=== PATIENT | male | born 1970 | race Caucasian/White ===

== ENCOUNTER → 2021-12-31 | Outpatient (CLI) | payer BC ==
[2021-12-31 22:49] LABS: HCT 47.6 % (39.6-50.0); HGB 15.9 g/dL (13.0-17.0); MCH 30.8 pg (27.0-32.0); MCHC 33.4 g/dL (32.0-37.0); MCV 92.1 fL (80.0-97.0); Mean Platelet Volume 11.9 fL (9.5-12.2); NRBC Per 100 WBC 0 /100 WBCS (0.0-0.0); Platelet Count 235 X 10*3/uL (140-440); RBC 5.17 X 10*6/uL (4.40-5.60); RDW 12.3 % (11.5-14.5); WBC 8.07 X 10*3/uL (4.50-10.00)
[2021-12-31 23:19] LABS: Appearance,Urine Cloudy (Clear); Bilirubin,Urine Negative (Negative); Blood,Urine Large (Negative); Color,Urine Dark Yellow (Yellow); Ketones,Urine Trace mg/dL (Negative); Nitrite,Urine Negative (Negative); Specific Gravity,Urine 1.022 (1.001-1.030)
[2022-01-01 00:01] LABS: Bacteria,Urine None Seen /HPF (None Seen)
[2022-01-01 02:10] LABS: African American GFR (CKD) 89.6 (60.0-200.0); Anion Gap 11.2 mmol/L (10.00-18.00); BUN/Creat Ratio 10.73 Ratio (12.00-20.00); Blood Urea Nitrogen 11.8 mg/dL (9.0-27.0); Calcium 9.5 mg/dL (8.7-10.3); Carbon Dioxide 24.8 mmol/L (20.0-27.5); Non-African American GFR(CKD) 77.3 (60.0-200.0); Potassium 4.2 mmol/L (3.5-5.5)
== END | disposition home or self-care (01) ==
LOC: LABPAT 15:08
PROVIDERS: ATTEND Urology
DX: Z01.812 Encounter for preprocedural laboratory examination (principal); N20.1 Calculus of ureter
CPT/HCPCS: 80048; 81001; 85027; 87086

== ENCOUNTER 2022-01-08 10:43 | Day surgery (SDC) | payer BC ==
--- NOTE | 2022-01-08 07:56 | P.HPIHPCON ---
History of Present Illness H&P Date: 01/08/22 This is a 51 yo male with hx of 7 mm left sided ureteral stone S/P stent insertion at [place]. He presents today for definitive stone management. Option of ESWL versus ureteroscopy was discussed with him in detail. Risk and benefit of each approach was discussed in details. He agreed to proceed with left-sided ureteroscopy with holmium laser. Discussed the risk which includes but not limited to bleeding, infection, injury to the ureter. He understood all the risk and agreed to proceed Consent for Procedure: I have explained the operation/procedure to the patient, including the risks, benefits, side effects, alternative therapies (including not receiving the pro posed treatment or service), the likelihood of the patient achieving his/her goals, and potential recuperation problems for the procedure/sedation/analgesia, as well as any blood products, if indicated. I also explained to the patient the risks, benefits and side effects of the alternatives, as well as the risks related to not receiving the proposed procedure, care, treatment, or services. 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 History of Any Multi-Drug Resistant Organisms: None Reported Additional Past Surgical History / Comment(s): cystoscopy w/ureteral stent @[facility] in November, pilonidal cystectomy Past Anesthesia/Blood Transfusion Reactions: No Reported Reaction Smoking Status: Never smoker - Past Family History Mother Family Medical History: No Reported History Medications and Allergies Home Medications Medication Instructions Recorded Confirmed Type Acetaminophen/Diphenhydramine 1 tab PO DAILY 01/06/22 01/06/22 History [Tylenol PM 500-25mg] Fexofenadine HCl [Crista Allergy] 180 mg PO DAILY 01/06/22 01/06/22 History Tamsulosin [Flomax] 0.4 mg PO 1500 01/06/22 01/06/22 History lisinopriL [Zestril] 20 mg PO 1400 01/06/22 01/06/22 History Allergies Allergy/AdvReac Type Severity Reaction Status Date / Time No Known Allergies Allergy Verified 01/06/22 14:49 Surgical - Exam - General no distress, moderate pain - Eyes normal ocular movement, no pale - ENT normal nares, normal mucosa - Respiratory normal expansion, normal respiratory effort - Abdomen Abdomen: soft, non tender Assessment and Plan Assessment: OR for left-sided ureteroscopy, with holmium laser lithotripsy, stone basketing and stent insertion
[~2022-01-08 10:43] MED LIST: ceFAZolin 3 GM in SODIUM CHLORIDE 0.9% 100 ML IVPB PRN
--- NOTE | 2022-01-08 11:17 | XR ---
EXAMINATION TYPE: XR KUB DATE OF EXAM: 01/08/2022 11:00 AM INDICATION: Patient age:Male; 51 years old; Reason for study: kidney stones; COMPARISON: None. TECHNIQUE: One radiographic view of the abdomen was obtained. FINDINGS: Left ureteral stent with tips. No definitive renal calculi identified. The bowel gas patter n is nonspecific without dilated loops of small or large bowel. There is no evidence for organomegaly or pneumoperitoneum. The osseous structures are intact. Fecal material and gas are demonstrated thr oughout the colon and rectum. Degenerative changes of the hips bilaterally. IMPRESSION: 1. No definitive evidence for renal calculus 2. Nonspecific bowel gas pattern without radiographic evidence for acute process. 3. Left ureteral stent with tips in appropriate position. 4. Moderate to severe hip osteoarthrosis.
[2022-01-08] MEDS ORDERED: LACTATED RINGERS 1,000 ML IV ONE ×2 (11:41→14:32)
[2022-01-08] MEDS ORDERED: ONDANSETRON 4 MG/2 ML VIAL ONE (11:44)
[2022-01-08] MEDS ORDERED: DEXAMETHASONE SOD PHOSPHATE 4 MG/ML 1 ML VIAL IVP ONE (11:47)
[2022-01-08] MEDS ORDERED: ONDANSETRON 4 MG/2 ML VIAL IVP ONE (11:48)
[2022-01-08] MEDS ORDERED: PROPOFOL 10 MG/ML 20 ML VIAL IV ONE (13:28)
[2022-01-08] MEDS ORDERED: LIDOCAINE 2% INJ 20 MG/ML (2 ML VIAL) ONE (13:28)
[2022-01-08] MEDS ORDERED: NEOSTIGMINE 1 MG/ML 10 ML VIAL ONE (13:28)
[2022-01-08] MEDS ORDERED: GLYCOPYRROLATE 0.2 MG/ML 2 ML VIAL ONE (13:28)
[2022-01-08] MEDS ORDERED: SUCCINYLCHOLINE CHLORIDE 200 MG/10 ML VIAL IV ONE (13:28)
[2022-01-08] MEDS ORDERED: MIDAZOLAM 2 MG/2 ML VIAL ONE (13:28)
[2022-01-08] MEDS ORDERED: ROCURONIUM 10 MG/ML (5 ML VIAL) IV ONE (13:28)
[2022-01-08] MEDS ORDERED: fentaNYL (PF) 50 MCG/ML 2 ML AMP ONE (13:28)
[2022-01-08] MEDS ORDERED: IOPAMIDOL-370 50ML BTL MISCELLANE ONE (14:01)
--- NOTE | 2022-01-08 14:37 | P.OP ---
Date of Procedure: 01/08/22 Preoperative Diagnosis: Left ureteral stone Postoperative Diagnosis: Same Procedure(s) Performed: Cystoscopy, left ureteroscopy, holmium laser lithotripsy, stone basketing and stent removal Implants: None Anesthesia: ELISEOA Surgeon: Rudy Rutledge Estimated Blood Loss (ml): 5 Pathology: other (left ureteral stone) Condition: stable Disposition: PACU Indications for Procedure: This is a 51 yo male with hx of 7 mm left sided ureteral stone S/P stent inser tion at [place]. He presents today for definitive stone management. Option of ESWL versus ureteroscopy was discussed with him in detail. Risk and benefit of each approach was discussed in details. He agreed to proceed with left-sided ureteroscopy with holmium laser. Discussed the risk which includes but not limited to bleeding, infection, injury to the ureter. He understood all the risk and agreed to proceed Operative Findings: Stone in the left renal pelvis Description of Procedure: Patient brought to the operating room, general anesthesia was induced. He was prepped and draped in sterile fashion and placed in dorsal lithotomy position. Cystoscopy fitted with 21-[place] sheath was inserted per urethra, cystoscopy was performed which showed no abnormality within the bladder. Attention was then carried to the ureteral stent which was grasped and removed to the meatus. Next a sensor wire was advanced through the stent and the stent was removed wire in place. Next under fluoroscopy 1113 [place] access sheath was passed over the wire and into the proximal ureter. Next the flexible ureteroscope was inserted through the access sheath, renoscopy was performed which showed a large stone in the renal pelvis, an additional 2 small stones in the lower pole. The smaller stones in the lower pole was basketed and sent for analysis. The stone within the renal pelvis was fragmented using the holmium laser, sizable fragments were removed using the stone basket. Repeat renoscopy showed no sizable fragments or injury to the kidney. Pullback ureteroscopy was performed which showed no injury to the ureter or any ureteral stones. The bladder was emptied and into the case. Patient tolerated procedure well was taken to recovery in stable condition
--- NOTE | 2022-01-08 14:41 | FL ---
Intraoperative/procedural fluoroscopic services were provided for left-sided lithotripsy with Dr. Juma robles. Total fluoroscopy time is 4 seconds with a total of 1 submitted image to PACS. Please see the op erative note for further details.
[2022-01-08 15:16] VITALS: TEMP 97.6
[2022-01-08 15:42] VITALS: RESP 18
[2022-01-08 16:04] VITALS: BP 123/80; PULSE 78
== END 2022-01-08 16:08 | disposition home or self-care (01) ==
LOC: OR 10:43
PROVIDERS: ATTEND Urology
DX: N20.1 Calculus of ureter (principal); I10 Essential (primary) hypertension; J45.909 Unspecified asthma, uncomplicated; G47.33 Obstructive sleep apnea (adult) (pediatric); E66.01 Morbid (severe) obesity due to excess calories; F32.A Depression, unspecified; M19.90 Unspecified osteoarthritis, unspecified site; Z79.899 Other long term (current) drug therapy; Z79.1 Long term (current) use of non-steroidal anti-inflammatories (NSAID); Z87.442 Personal history of urinary calculi
CPT/HCPCS: 82365; 74018; 52356; C1769; J2250; J0330; J1100; J2710; J0690; J2405; J3010; J2704; Q9967; J2001

== ENCOUNTER → 2022-03-06 | Outpatient (CLI) | payer BC ==
--- NOTE | 2022-03-06 15:07 | XR ---
EXAMINATION TYPE: XR KUB DATE OF EXAM: 03/06/2022 1:59 PM CLINICAL HISTORY: Kidney calculus TECHNIQUE: 3 supine KUB images of the abdomen obtained. COMPARISON: Prior abdominal x-ray January 08, 2022. FINDINGS: Interval removal of double-J left ureteral stent. No definitive visualized calculus on curr ent study. Moderate right-sided colonic fecal prominence redemonstrated. Lung bases remain clear. Multilevel spu rring in the thoracolumbar spine redemonstrated. Loss of spherical shape with prominent contour head neck junction of bilateral femurs suggest underlying [place]. There is subchondral cystic change in bilat eral femoral heads redemonstrated. IMPRESSION: No definitive nephrolithiasis. Interval removal of double-J left ureteral stent.
== END | disposition home or self-care (01) ==
LOC: RADXRMAIN 13:40
PROVIDERS: ATTEND Urology
DX: N20.0 Calculus of kidney (principal); Z96.0 Presence of urogenital implants
CPT/HCPCS: 74018